=== PATIENT | female | born 1945 | race African-American/Black ===

== ENCOUNTER 2018-09-17 11:02 | Emergency (ER) | payer MEDICARE, MEDICAID ==
[~2018-09-17] VITALS: Ht 162.6 cm; Wt 65.8 kg
[~2018-09-17 11:02] MED LIST: LISI-603 PO; METO-295 PO; NIFE-2 PO; SIMV10TA6 PO; TEMA30CA PO; TRAZ150T75 PO
[2018-09-17 11:10] VITALS: BP 146/78
[2018-09-17] MEDS ORDERED: ALBUTEROL FS 2.5 MG/3 ML VIAL.NEB NEB ONE (11:30)
--- NOTE | 2018-09-17 11:40 | NUR ---
URINE SPECIMEN COLLECTED AND SENT TO LAB
--- NOTE | 2018-09-17 11:46 | NUR ---
PT IS WHEELED TO CT SCAN VIA WHEELCHAIR.
[2018-09-17] MEDS ORDERED: ALBUTEROL FS 2.5 MG/3 ML VIAL.NEB ONE (11:49)
[2018-09-17 11:50] LABS: BILIRUBIN,URINE Negative (NEGATIVE); BLOOD, URINE Small Ery/uL (NEGATIVE); COLOR,URINE Yellow (YELLOW); KETONES,URINE Negative (NEGATIVE); LEUKOCYTE ESTERASE ,URINE Negative (NEGATIVE); NITRITE, URINE Negative (NEGATIVE); PH,URINE 6.5 (5.0-8.0); PROTEIN,URINE Negative (NEGATIVE); UGLUCOSE Negative (NEGATIVE); UROBILINOGEN,URINE 0.2 EU/dL (0.2)
[2018-09-17 11:52] LABS: APPEARANCE,URINE Hazy (CLEAR)
[2018-09-17 12:04] LABS: BACTERIA,URINE Rare /HPF (None Seen); RBC,URINE 50-80 /HPF (0-2); SQUAMOUS EPITHELIAL CELL,UR Few /HPF (None Seen)
--- NOTE | 2018-09-17 12:36 | NUR ---
Patient discharged to home in stable condition. Written and verbal after care instructions given. Patient verbalizes understanding of instruction.
== END 2018-09-17 12:56 | disposition home or self-care (01) ==
LOC: ER 11:08
DX: R35.0 Frequency of micturition (principal); I10 Essential (primary) hypertension; J44.9 Chronic obstructive pulmonary disease, unspecified; F32.9 Major depressive disorder, single episode, unspecified; G47.9 Sleep disorder, unspecified; Z88.0 Allergy status to penicillin; Z88.6 Allergy status to analgesic agent; Z76.0 Encounter for issue of repeat prescription
CPT/HCPCS: 70360-TC; 81000-TC